=== PATIENT | female | born 1965 | race Two or more races ===

== ENCOUNTER 2018-02-18 09:27 | Emergency (ER) | payer SELFPAY ==
[~2018-02-18] VITALS: Ht 165.1 cm; Wt 70.0 kg
[2018-02-18] MEDS ORDERED: SERT20OR PO (09:32)
[2018-02-18] MEDS ORDERED: LORAZEPAM 2MG/ML CPJ IM ONE (10:00)
[2018-02-18] MEDS ORDERED: DIPHENHYDRAMINE 50MG/ML VIAL IM ONE (10:00)
[2018-02-18] MEDS ORDERED: HALOPERIDOL LACTATE 5MG/ML VIAL IM ONE (10:00)
[2018-02-18 11:37] LABS: HEMATOCRIT. 36.8 % (36.0-48.0); HEMOGLOBIN. 12.8 g/dL (12.0-16.0); MEAN CORPUSCULAR HEMOGLOBIN 31.4 pg (28.0-32.0); MEAN CORPUSCULAR VOLUME 90.1 fL (81.0-99.0); MEAN PLATELET VOLUME 8.8 fl (7.4-10.4); PLATELET 221 x1000/uL (130-400); RED BLOOD CELL COUNT 4.08 mill/uL (4.2-5.4); RED CELL DISTRIBUTION WIDTH 13.2 % (11.6-14.6)
[2018-02-18 11:44] LABS: CHLORIDE 103 mEq/L (98-107)
[2018-02-18 11:47] LABS: ETHANOL BLOOD < 10 mg/dL
[2018-02-18 11:56] LABS: PLATELET ESTIMATE NORMAL
[2018-02-18 12:29] LABS: *COCAINE SCREEN URINE NEGATIVE (NEGATIVE); METHADONE URINE SCREEN NEGATIVE (NEGATIVE); OPIATES URINE SCREEN NEGATIVE (NEGATIVE)
[2018-02-18 12:30] LABS: *AMPHETAMINES SCREEN URINE PRESUMTIVE POSITIVE (NEGATIVE); *BARBITURATES SCREEN URINE NEGATIVE (NEGATIVE); *BENZODIAZEPINES SCREEN URINE NEGATIVE (NEGATIVE); CANNABINOID URINE SCREEN PRESUMTIVE POSITIVE (NEGATIVE); PHENCYCLIDINE URINE SCREEN NEGATIVE (NEGATIVE)
[2018-02-18 12:46] LABS: HCG SCREEN NEGATIVE
[2018-02-18 20:02] VITALS: BP 130/82
== END 2018-02-18 19:59 | disposition home or self-care (01) ==
LOC: ER 09:27
DX: F12.10 Cannabis abuse, uncomplicated (principal); F15.10 Other stimulant abuse, uncomplicated; F16.10 Hallucinogen abuse, uncomplicated; F20.9 Schizophrenia, unspecified; F31.9 Bipolar disorder, unspecified; Z88.0 Allergy status to penicillin; Z88.9 Allergy status to unspecified drugs, medicaments and biological substances; Z79.899 Other long term (current) drug therapy
CPT/HCPCS: 36415; 80048; 80305; 80307; 80329; 81025; 84703; 85025; 96372; 99284; G0482; J1200; J1630; J2060; Z7610

== ENCOUNTER 2025-03-30 15:32 | Emergency (ER) | payer SELFPAY ==
[~2025-03-30 15:32] MED LIST: SERT20OR13 PO
== END 2025-03-30 15:37 | disposition left against medical advice (07) ==
LOC: ER 15:32
DX: M54.9 Dorsalgia, unspecified (principal); Z53.21 Procedure and treatment not carried out due to patient leaving prior to being seen by health care provider